=== PATIENT | female | born 1980 | race Caucasian/White ===

== ENCOUNTER 2023-07-28 16:07 | Emergency (ER) | payer BC, OTHER ==
[~2023-07-28] VITALS: Ht 167.6 cm; Wt 113.0 kg
[2023-07-28 16:20] VITALS: BP 150/85; PULSE 89; O2SAT 99
[2023-07-28] MEDS ORDERED: PRED20TA PO (16:51)
[2023-07-28 16:59] VITALS: RESP 18; TEMP 99.7
== END 2023-07-28 17:01 | disposition home or self-care (01) ==
LOC: ER 16:08
DX: S50.11XA Contusion of right forearm, initial encounter (principal); G58.8 Other specified mononeuropathies; Z88.8 Allergy status to other drugs, medicaments and biological substances; W18.30XA Fall on same level, unspecified, initial encounter; Y93.89 Activity, other specified; Y92.89 Other specified places as the place of occurrence of the external cause; Y99.8 Other external cause status
CPT/HCPCS: 29125; 73090; 99283